=== PATIENT | female | born 1940 | race Caucasian/White ===

== ENCOUNTER 2019-05-22 13:58 | Emergency (ER) | payer MEDICARE, BC, SELFPAY ==
--- NOTE | ~2019-05-22 | XR_ITS ---
EXAMINATION: XR chest 2V DATE: 05/22/2019 14:31 INDICATION: Cough TECHNIQUE: PA and lateral views of the chest are obtained. COMPARISON: None available FINDINGS: The lungs are free of acute opacities. There is no pleural effusion or pneumothorax. The ca rdiomediastinal silhouette is normal. There is moderate thoracic spondylosis. IMPRESSION: 1. No acute cardiopulmonary abnormality. Reviewed, dictated and finalized at location A. [facility]UFFER
[2019-05-22 14:09] VITALS: BP 136/64; PULSE 93; RESP 18; TEMP 36.6; O2SAT 97
--- NOTE | 2019-05-22 14:45 | ED.URI ---
HPI - URI/Sore Throat General Chief Complaint: Upper Respiratory Infection Stated Complaint: Cough,Fever Source: patient Mode of arrival: ambulatory Limitations: no limitations History of Present Illness HPI Narrative: Patient is a 79-year-old female who presents complaining of cough. She reports influenza 2 to 3 weeks ago, with symptoms resolving all except for cough. She denies shortness of breath. She denies fever, body aches or other symptoms MD elicited complaint: cough Related Data Allergies Allergy/AdvReac Type Severity Reaction Status Date / Time Sulfa (Sulfonamide Allergy Intermediate Swelling Verified 05/22/19 14:20 Antibiotics) of Lip/Tongue/Throat Review of Systems Review of Systems: Narrative: CONSTITUTIONAL: Denies fever, chills, or sweats. EYES: Denies visual changes, redness, or discharge. ENT: Denies rhinorrhea, congestion, sore throat, or otalgia. CARDIOVASCULAR: Denies chest pain, palpitations, or edema. RESPIRATORY: Reports cough, denies dyspnea. GASTROINTESTINAL: Denies abdominal pain, nausea, vomiting, or diarrhea. GENITOURINARY: Denies dysuria or hematuria. SKIN: Denies rash or itching. MUSCULOSKELETAL: Denies back pain, joint pain, or myalgia. NEUROLOGIC: Denies headache, numbness, dizziness, or weakness. PSYCHIATRIC: Denies anxiety or depression. [facility] Past Medical History Medical History Anxiety Arthritis Colitis Colon cancer Depression Postmenopausal Prolapsed uterus Surgical History Surgical History Hx of tonsillectomy Family History Family History Sibling Family history of cardiovascular disease Social History Social History Smoking status: Former smoker Smoking end date: 03/29/75 Alcohol intake: never Exam Narrative: Exam Narrative: GENERAL: Well-appearing, well-nourished, and in no acute distress. HEAD: Normocephalic, atraumatic. EYES: EOMI. No redness or drainage. Conjunctiva are normal. ENT: Mucous membranes pink and moist. Nares clear. No rhinorrhea. TMs normal bilaterally. Throat normal. Uvula midline. NECK: AROM. Supple. No lymphadenopathy. CHEST: No respiratory distress. Clear to auscultation. HEART: Regular rate and rhythm. No murmur appreciated. Normal peripheral pulses. EXTREMITIES: Normal range of motion. No edema. SKIN: Warm, dry, no rash. NEURO: No focal deficits. Alert and oriented x3. Gait steady. PSYCH: Normal affect. No signs of depression or anxiety. Course Vital Signs Vital signs: Vital Signs Temperature 36.6 C 05/22/19 14:09 Pulse Rate 93 05/22/19 14:09 Respiratory Rate 18 05/22/19 14:09 Blood Pressure 136/64 05/22/19 14:09 Pulse Oximetry 97 05/22/19 14:09 Temperature 36.6 C 05/22/19 14:09 Pulse Rate 93 05/22/19 14:09 Respiratory Rate 18 05/22/19 14:09 Blood Pressure 136/64 05/22/19 14:09 Pulse Oximetry 97 05/22/19 14:09 Reviewed. Patient has been instructed to follow-up with her PCP regarding her blood pressure. MDM - URI/Sore Throat MDM Narrative Medical decision making narrative: Patient's chest x-ray was negative. Afebrile. Patient most likely has an acute bronchitis post viral infection. Discussed plan of care with patient. Patient is stable for discharge to home with outpatient follow-up as needed. Differential Diagnosis Differential diagnosis: Likely upper respiratory infection, viral infection, bronchitis and influenza Medical Records Attestation: I reviewed the patient's medical records. Critical Care Time Critical Care Time Critical Care Time: No Discharge Plan Discharge Clinical Impression: Bronchitis Patient Disposition: Home, Self-Care Condition: Stable Instructions: Antibiotic Form Prescriptions: New prednisone 20 mg tablet
== END 2019-05-22 14:59 | disposition home or self-care (01) ==
PROVIDERS: Emergency Provider Nurse Practitioner; PCP Emergency Medicine
DX: J40 Bronchitis, not specified as acute or chronic (principal); Z87.891 Personal history of nicotine dependence; M19.90 Unspecified osteoarthritis, unspecified site; Z85.038 Personal history of other malignant neoplasm of large intestine
CPT/HCPCS: 71046; 99213; G0463